=== PATIENT | female | born 1945 | race Caucasian/White ===

== ENCOUNTER 2016-11-13 16:57 | Outpatient (CLI) | payer OTHER ==
--- NOTE | 2016-11-13 17:41 | DIAGNOSTIC IMAGING REPORT ---
PROCEDURE: US SOFT TISSUE THYR/NECK/HEAD INDICATION: Follow-up multinodular thyroid gland. TECHNIQUE: Hayes scale and color Doppler sonographic images of the thyroid gland were obtained. COMPARISON: Comparison is made to thyroid ultrasound 08/08/2015. FINDINGS: RIGHT LOBE: Right lobe is of normal size 94.3 x 2.0 x 1.8 cm) of. There are three stable ovoid isoechoic nodules in the right lobe (upper pole 0.9 cm, mid pole 0.9 cm, lower pole 1.3 cm). LEFT LOBE: Left lobe of the thyroid gland is of normal size (4.0 x 1.6 x 1.7 cm). There has been interval resolution of left thyroid cyst. ISTHMUS: The isthmus is normal (2.8 mm) IMPRESSION: 1. Normal size multinodular thyroid gland consistent with benign adenomas. No significant change.
== END 2016-11-13 23:00 ==
LOC: US SRH 16:57
DX: E04.2 Nontoxic multinodular goiter (principal)

== ENCOUNTER 2017-01-24 11:31 | Outpatient (CLI) | payer OTHER ==
--- NOTE | 2017-01-24 17:27 | DIAGNOSTIC IMAGING REPORT ---
PROCEDURE: MG BILATERAL SCREENING W/CAD INDICATION: SCREENING TECHNIQUE: Standard CC and MLO views bilaterally. Computer aided detection was used. COMPARISON: 06/11/2013 FINDINGS: Mildly dense, patchy fibroglandular tissue is present bilaterally, left greater than right. Increasingly conspicuous 5 mm density centrally in the right breast seen best on the CC projection, likely in the 12 o'clock position on the MLO view. No areas of architectural distortion, or suspicious microcalcifications. IMPRESSION: 1. Developing density centrally right breast for which further mammographic and sonographic evaluation is recommended. 2. The patient will be contacted. RESULT CODE: 0- Incomplete; needs additional evaluation. A. A negative report should not delay biopsy if a dominant or clinically suspicious mass is present. 10-15% of cancers are not identified by x-ray. B. A negative report may reinforce clinical impression. C. Adenosis and dense breasts may obscure an underlying neoplasm. D. False positive reports average 6-10%. E.. A yearly screening mammogram is recommended. A reminder letter will be scheduled.
== END 2017-01-24 23:00 | disposition home or self-care (01) ==
LOC: MAM SRH 11:31
DX: Z12.31 Encounter for screening mammogram for malignant neoplasm of breast (principal)

== ENCOUNTER 2017-02-03 11:15 | Outpatient (CLI) | payer OTHER ==
--- NOTE | 2017-02-03 12:46 | DIAGNOSTIC IMAGING REPORT ---
PROCEDURE: MG UNILATERAL DIAG-RT W/CAD INDICATION: EVALUATE DENSITY SEEN ON SCREENING TECHNIQUE: Spot compression mammographic views of the right breast in the CC and MLO projection. A direct lateral right breast mammogram using CAD. Rolled views in the CC projection. Spot compression in the lateral projection. The patient then went to ultrasound where maurice-scale and color Doppler sonographic imaging of the right breast was performed. COMPARISON: 01/24/2017, 06/11/2013 FINDINGS: Mammograms: With spot compression in the CC, MLO, and direct lateral projections, the nodule in question dissipates. No persistent circumscribed density. No architectural distortion or suspicious microcalcification. Ultrasound: Sonographically normal tissue without cyst, solid mass, or suspicious shadowing. No abnormal vascularity. IMPRESSION: 1. With additional mammographic views and ultrasound, no persistent abnormality in the right breast. 2. The patient can resume yearly screening mammography. Findings and recommendations were discussed with the patient. RESULT CODE: 1- Negative. A. A negative report should not delay biopsy if a dominant or clinically suspicious mass is present. 10-15% of cancers are not identified by x-ray. B. A negative report may reinforce clinical impression. C. Adenosis and dense breasts may obscure an underlying neoplasm. D. False positive reports average 6-10%. E.. A yearly screening mammogram is recommended. A reminder letter will be scheduled.
== END 2017-02-04 15:50 | disposition home or self-care (01) ==
LOC: MAM SRH 11:15
DX: R92.2 Inconclusive mammogram (principal)